=== PATIENT | male | born 1960 | race Caucasian/White ===

== ENCOUNTER → 2021-10-01 | Outpatient (CLI) | payer BC ==
[~2021-10-01] MED LIST: COZAAR25 MG PO; GLIPIZIDE ER10 MG PO; METFORMIN HCL500 M1 PO
== END ==
LOC: CARD 07:28
PROVIDERS: ATTEND Family Medicine
DX: I73.9 Peripheral vascular disease, unspecified (principal)
CPT/HCPCS: 93922; 93925

== ENCOUNTER → 2022-02-01 | Outpatient (CLI) | payer BC | LOC: CARD 08:46 | PROVIDERS: ATTEND Family Medicine | DX: I73.9 Peripheral vascular disease, unspecified (principal) | CPT/HCPCS: 93922; 93925 ==